=== PATIENT | female | born 1940 | race Caucasian/White ===

== ENCOUNTER 2023-02-21 09:46 | Outpatient (RCR) | payer MEDICARE, MEDICAID, SELFPAY ==
[2023-02-21 10:33] VITALS: BP 96/53; PULSE 141; RESP 18; TEMP 36.1; BMI 16.8
--- NOTE | 2023-02-21 13:18 | PCM.WC.HP ---
History of Present Illness Date of Service: 02/21/23 Chief Complaint: Right Elbow Ulcer History of Wound: Ms. Horton is an 82-year-old who was referred to the wound center due to nonhealing right elbow ulcer. Noted after her cast was taken off. Had a cast placed for over a month due to right upper extremity fracture. Measures so far to aid in ulcer healing not effective. She reports significant pain at the site. No drainage reported. No chills, fever or otherwise feeling of unwell. History of tobacco use. Daughter present during visit, she states that due to difficulty with eating with her left hand, she has had poor eating lately. [facility] Medical History (Updated 02/21/23 @ 19:[address] Kee Cleveland MD) Acute on chronic hyponatremia Chronic hyponatremia Continuous tobacco abuse COPD (chronic obstructive pulmonary disease) Diverticulosis LARIOS (dyspnea on exertion) GERD (gastroesophageal reflux disease) Hyperlipidemia Hyperplastic colon polyp Hypertension Osteoarthritis Persistent diarrhea Pressure ulcer of right elbow, stage 3 Pulmonary nodule Tobacco abuse Type 2 diabetes mellitus Home Medications albuterol sulfate 90 mcg/actuation aerosol inhaler 1 puff inhalation Q6H PRN PRN Sob &/Or Wheezing 02/01/17 [History Last Taken Unknown] ascorbic acid (vitamin C) 500 mg chewable tablet 500 mg PO DAILY 02/01/17 [History Last Taken 01/31/17] aspirin 81 mg chewable tablet 81 mg PO DAILY@0800 02/01/17 [History Last Taken 01/31/17] bupropion HCl (smoking deter) 150 mg tablet,12 hr sustained-release(smoking deterrent) 150 mg PO BID 02/01/17 [History Last Taken 01/31/17] cholecalciferol (vitamin D3) 25 mcg (1,000 unit) capsule 1,000 unit PO DAILY 02/01/17 [History Last Taken 01/31/17] fluticasone 250 mcg-salmeterol 50 mcg/dose blistr powdr for inhalation 1 puff inhalation BID 02/01/17 [History Last Taken 01/31/17] insulin glargine 100 unit/mL (3 mL) subcutaneous pen 8 - 15 units SQ QHS 02/01/17 [History Last Taken 01/31/17] lisinopril 20 mg tablet 20 mg PO DAILY 02/01/17 [History Last Taken 01/31/17] metformin 1,000 mg tablet 1,000 mg PO BIDCM 02/01/17 [History Last Taken 01/31/17] multivitamin with folic acid 400 mcg tablet 1 tab PO DAILY 02/01/17 [History Last Taken 01/31/17] omega 3-dha 60 mg-epa 90 mg-fish oil 500 mg capsule, delayed release 1 ea PO DAILY 02/01/17 [History Last Taken 01/31/17] omeprazole 40 mg capsule,delayed release 40 mg PO DAILY 02/01/17 [History Last Taken 01/31/17] loperamide 2 mg capsule 2 mg PO Q4H PRN PRN Diarrhea #30 caps 02/02/17 [Rx Last Taken Unknown] triamcinolone acetonide 0.1 % topical cream 1 applic topical BID #1 tube 02/02/17 [Rx Last Taken Unknown] nicotine 21 mg/24 hr daily transdermal patch 21 mg transdermal ONCE 09/24/17 [History Last Taken Unknown] fluticasone furoate 200 mcg-vilanterol 25 mcg/dose inhalation powder (Breo Ellipta) 1 inh inhalation QDAY #3 ea 03/24/18 [Rx Last Taken Unknown] Allergy/AdvReac Type Severity Reaction Status Date / Time codeine AdvReac Upset Verified 03/24/18 07:34 Stomach Surgical History (Reviewed 03/24/18 @ 10:32 by Wendi Marquez SKEIN MERCERIZING MACHINE OPERATOR, SKEIN MERCERIZING MACHINE OPERATOR-C) History of carpal tunnel release History of laparoscopic cholecystectomy History of partial hysterectomy Social History (Updated 03/24/18 @ 11:06 by Wendi Marquez SKEIN MERCERIZING MACHINE OPERATOR, SKEIN MERCERIZING MACHINE OPERATOR-C) Smoking Status: Light Smoker (<10/day) ROS Constitutional Constitutional: Denies daytime sleepiness, fever(s), headache(s), increased appetite, night sweats or snoring Eyes Eyes: Denies change in vision, decreased night vision, discongugate gaze, double vision, dry eyes or erythema ENT HEENT: Denies halitosis, headache(s), hearing loss, hoarseness, mouth pain, mucositis, nasal congestion, nasal discharge, nasal obstruction or neck pain Cardiovascular Cardiovascular: Denies cold extremities, cyanosis, diaphoresis, dizziness, dyspnea at rest, edema or erythema on extremities Respiratory/Chest Respiratory/Chest: Denies excessive phlegm production, hemoptysis, inability to speak, mouth breathing, nail bed cyanosis or restlessness Gastrointestinal Gastrointestinal: Denies coffee ground emesis, constipation, dysphagia, early satiety or fecal incontinence Genitourinary Genitourinary: Denies abdominal discomfort, anuria or flank pain Musculoskeletal Musculoskeletal: Reports extremity pain, joint pain and joint stiffness; Denies muscle cramps, muscle weakness, neck pain or numbness Integumentary Integumentary: Denies changing lesions, erythema, hirsutism, jaundice, lesions, new lesions or photosensitivity Neurologic Neurologic: Denies abnormal speech, behavior changes, burning sensations, confusion, convulsions, focal weakness or lack of coordination Psychiatric Psychiatric: Denies auditory hallucinations, behavioral changes, change in appetite, confusion, depression, difficulty concentrating, hallucinations, homicidal ideation or irritability Endocrine Endocrinology: Denies excessive sweating, fatigue, heat intolerance, increase in ring/shoe/hat size, palpitations, polydipsia, polyphagia or polyuria Hematologic/Lymphatic Hematologic/Lymphatic: Denies easy bleeding or lymphadenopathy Allergic/Immunologic Allergic/Immunologic: Denies itchy eyes, lip swelling, throat swelling, tongue swelling, hives, eczemia, wheezing or asthma Vital Signs Vital Signs Vital Signs: 02/21/23 10:33 Temperature 97 F L Temperature Source Temporal Pulse Rate 141 H Respiratory Rate 18 Blood Pressure 96/53 L Blood Pressure Mean 67 Blood Pressure Source Monitor Blood Pressure Position Semi-Fowlers Blood Pressure Location Left Arm Weight Weight: 98 lb Body Mass Index (BMI) 16.8 Physical Exam Const alert, no apparent distress and average body habitus General Appearance: cooperative and well kempt HEENT normocephalic, head/scalp atraumatic and hearing grossly normal bilaterally Eyes EOMs intact bilaterally Neck full ROM General: normal visual inspection Resp normal respiratory effort and normal air movement Effort and Inspection: able to speak in complete sentences Cardio regular rate, S1 normal heart sound and S2 normal heart sound GI soft to palpation, non-tender and non-distended Skin Wounds: wounds noted Neuro CN's II-XII intact bilaterally, moves all extremities and no focal motor deficits Psych mental status grossly normal, thought process normal, cooperative and affect normal Debridement Note Debridement Note Post-Debridement Measurements and Additional Note: Post-Debridement Measurements/Treatment FREDY - Nurse 1 - General Ulcer Assessment Start: 02/21/23 10:33 Freq: Status: Active Protocol: FRANCES Activity Type Activity Date Activity User E-sign Co-sign Detail Recorded Client Recorded Date Recorded By Document 02/21/23 10:33 RB [id number] 02/21/23 10:39 RB 02/21/23 10:33 WC - Today's Visit Information Type of service Follow-up Visit (Physician/ANALYTICAL DATA MINER ) Arrival Mode Wheelchair Transfer Assistance Manual Patient Identification Verified (Name & Yes ) Patient Requires Transmission-Based No Precautions Height and Weight Height 5 ft 4 in Weight 98 lb Weight in Pounds 98.0 lbs Body Mass Index (BMI) 16.8 BMI Classification Underweight BSA - Nissa 1.44 Vital Signs Temperature (97.8 F-99.1 F) 97 F L Temperature Source Temporal Pulse Rate (60-100) 141 H Pulse Location Monitor Respiratory Rate (12-18) 18 Respiratory rate source Observation Blood Pressure (90/60-120/80) 96/53 L Blood Pressure Mean 67 Source Monitor Position Semi-Fowlers Blood Pressure Location Left Arm Pain Scale: 0-10 Numeric Is Patient Pain Free? Yes right elbow -Description Aching -Intensity 8 -Duration (hours) Acute -Pain Behavior Withdrawal from Touch -Pain Aggravating Factors ADL's -Alleviating Factors/Interventions Medication -Effectiveness of Alleviating Factor/ Minimally Intervention effective Communication Assessment Preferred language Lao Greenskeeper Head Required No Able to Read Yes Able to Write Yes Right Hearing Abillity Normal Left Hearing Abillity Normal Visual Assistive Devices Glasses Teaching Assessment Preferences Verbal,Written, Audio/Visual Barriers to Learning None Readiness To Learn Good Willingness to Engage in Self Management Med Activies Readiness to Engage in Self Management Med Activities Anxiety Level Calm Cooperation Cooperative Perception Coherent Interest in Health Problem Asks Questions Education Importance Acknowledges Need Does Patient Smoke tobacco or other Yes substances Smoking Status Light Smoker (< 10/day) Functional Assessment Recent Decline in Ability to Perform Ambulation, Bathing,Eating/ Feeding,Lower Body Dressing, Toileting, Transferring Assistive Device With Patient Yes Culture/Catholic/Flight Tower Dispatcher Cultural/Catholic Needs that may affect No Treatment Plan Would you allow our hospital systems administration analyst to No meet you for the purpose of spiritual/ emotional support? Flight Tower Dispatcher to contact place of rastafarian No Teaching: Wound Center *Welcome to the Wound Center -Person Taught Patient,Family -Teaching Method Discussion, Demonstration -Response to teaching Verbalize understanding WC - Nurse 1 - General Ulcer Measurement Start: 02/21/23 10:33 Freq: Status: Active Protocol: Activity Type Activity Date Activity User E-sign Co-sign Detail Recorded Client Recorded Date Recorded By Document 02/21/23 10:33 RB [id number] 02/21/23 10:39 RB 02/21/23 10:33 Wound Center Nurse 1 1. R elbow -Combined with other wound No -Current Size (cm) - Length 1.4 -Current Size (cm) - Width 1 -Current Size (cm) - Depth 0.4 -Total Square Cm 1.4 -Photo Taken Yes -Tunneling No -Undermining/Tunneling Yes -Undermining/Tunneling Starts (O'clock 12 ) -Undermining/Tunneling Ends (O'clock) 12 -Maximum Distance (cm) 0.2 -Circular Undermining Yes -Exudate Amt Medium -Exudate Type Serosanguineous -Wound Margin Distinct, Outline Attached -Granulation Amt Medium (34-66%) -Granulation Quality Trainer -Slough/Fibrin Yes -Necrosis Amt Medium (34-66%) -Necrotic Tissue Type Adherent Slough -Structure Exposed N/A -Texture (Meme-wound Skin Appearance) Assessed -Moisture (Meme-wound Skin Appearance) Assessed -Color (Meme-wound Skin Appearance) Assessed -Temperature (Meme-wound Skin No Abnormality Appearance) (Pt Warm) -Tenderness on Palpation (Meme-wound No Skin Appearance) -Ulcer Cleansing Wound Cleanser -Foul Odor after Cleansing No -Anesthetic Used 5% Lidocaine Gel WC - Nurse 2 - General Ulcer CM Notes Start: 02/21/23 10:33 Freq: Status: Active Protocol: Activity Type Activity Date Activity User E-sign Co-sign Detail Recorded Client Recorded Date Recorded By Document 02/21/23 11:07 MW [id number] 02/21/23 11:15 MW 02/21/23 11:07 Wound Center Nurse 2 -Time 11:13 -Correct Patient Yes -Correct Side, Site, Position Yes -Correct Procedure Yes -Procedure Performed No -Tunneling No -Undermining/Tunneling No -Circular Undermining No -Wound/Ulcer Outcome Not Healed -Ulcer Cleansing Rinsed/ Irrigated with Saline -Foul Odor after Cleansing No -Bioengineered Tissue No -Bleeding Controlled with NA Pain Scale: 0-10 Numeric Is Patient Pain Free? Yes WC - Nurse 3 - General Ulcer D/C NN Start: 02/21/23 10:33 Freq: Status: Active Protocol: Activity Type Activity Date Activity User E-sign Co-sign Detail Recorded Client Recorded Date Recorded By Document 02/21/23 12:05 BERT [id number] 02/21/23 12:06 BERT 02/21/23 12:05 Wound Care Center Nurse 3 1. R elbow -Ulcer Cleansing Rinsed/ Irrigated with Saline -Foul Odor after Cleansing No -Primary Dressing Applied C Hydrogel ($), Mepilex Border -Other Dressing HYDROGEL -Mepilex Border 1 Pain Scale: 0-10 Numeric Is Patient Pain Free? Yes WC - Visit Discharge Discharge Condition Stable Ambulatory Status Wheelchair Transportation Private Auto Accompanied by DAUGHTER Medication Reconcilliation completed & Yes provided to patient/care provider Clinical Summary of Care Provided Yes Charges/Coding Visit Charges Office Visits / Consults: [id number] OV L4 New Assessment/Plan Assessment/Plan (1) Pressure ulcer of right elbow, stage 3: CODE(S): L89.013 - Pressure ulcer of right elbow, stage 3 (2) Type 2 diabetes mellitus: CODE(S): E11.9 - Type 2 diabetes mellitus without complications (3) Tobacco abuse: CODE(S): Z72.0 - Tobacco use PLAN: Plan Nonhealing ulcer to right elbow likely from pressure. Slough noted on examination. Upper extremity is tender and she barely wants to move it. History of fracture. No debridement completed today. Due to slough, Santyl daily recommended. Foam dressing for pressure relief. Daughter states that she recently had labs done, will request records. Ayush twice daily recommended. Smoking cessation also strongly recommended and optimal diabetes control. Vitamin C, D and zinc discussed. Their questions were answered and they were advised to let us know if they have any further questions or concerns. Follow-up in a week or sooner if needed. This note was generated with [employer] dictation software. It may contain incorrect words, spelling, and punctuation that were not noted in checking the note before signing.
== END 2023-03-18 23:59 | disposition home or self-care (01) ==
LOC: WC 09:46
PROVIDERS: PCP Physician Assistant; Referring Provider Student in an Organized Health Care Education/Training Program; Visit Provider Internal Medicine
DX: L89.013 Pressure ulcer of right elbow, stage 3 (principal); J44.9 Chronic obstructive pulmonary disease, unspecified; E11.9 Type 2 diabetes mellitus without complications; Z79.4 Long term (current) use of insulin; Z79.51 Long term (current) use of inhaled steroids; Z79.84 Long term (current) use of oral hypoglycemic drugs; F17.200 Nicotine dependence, unspecified, uncomplicated; Z79.82 Long term (current) use of aspirin; E78.5 Hyperlipidemia, unspecified; I10 Essential (primary) hypertension; Z79.899 Other long term (current) drug therapy
CPT/HCPCS: 99203; G0463